=== PATIENT | male | born 1955 | race Caucasian/White ===

== ENCOUNTER 2018-03-05 10:30 | Outpatient (RCR) | payer OTHER | END 2018-03-11 | disposition still patient (30) | LOC: WSC | DX: M17.11 Unilateral primary osteoarthritis, right knee (principal); S83.206D Unspecified tear of unspecified meniscus, current injury, right knee, subsequent encounter ==

== ENCOUNTER 2018-03-12 10:37 | Outpatient (RCR) | payer OTHER | END 2018-06-10 | disposition home or self-care (01) | LOC: WSC | DX: M17.11 Unilateral primary osteoarthritis, right knee (principal); S83.206D Unspecified tear of unspecified meniscus, current injury, right knee, subsequent encounter ==

== ENCOUNTER → 2021-09-11 | Outpatient (RCR) | payer OTHER | END | disposition home or self-care (01) | LOC: PT.GENESIS | DX: Z96.651 Presence of right artificial knee joint (principal) ==

== ENCOUNTER 2021-10-10 11:00 | Outpatient (RCR) | payer OTHER | END 2021-10-12 | disposition still patient (30) | LOC: PT.GENESIS | DX: Z96.659 Presence of unspecified artificial knee joint (principal) ==

== ENCOUNTER 2021-10-30 16:00 | Outpatient (RCR) | payer OTHER | END 2021-11-11 | disposition home or self-care (01) | LOC: PT.GENESIS | DX: Z96.651 Presence of right artificial knee joint (principal) ==

== ENCOUNTER 2021-12-06 15:15 | Outpatient (RCR) | payer OTHER | END 2021-12-12 13:13 | disposition home or self-care (01) | LOC: PT.GENESIS 15:15 | DX: Z96.651 Presence of right artificial knee joint (principal) ==